=== PATIENT | female | born 1985 | race Caucasian/White ===

== ENCOUNTER 2024-01-02 09:53 | Emergency (ER) | payer MEDICAID, OTHER ==
[~2024-01-02] VITALS: Ht 167.6 cm; Wt 75.0 kg
[2024-01-02 10:07] VITALS: O2SAT 98
[2024-01-02 11:07] LABS: CLARITY URINE CLEAR (CLEAR); COLOR URINE YELLOW (YELLOW); GLUCOSE URINE NEGATIVE (NEGATIVE); KETONES URINE NEGATIVE (NEGATIVE); LEUKOCYTE ESTERASE URINE 1+ (NEGATIVE); NITRITE URINE NEGATIVE (NEGATIVE); OCCULT BLOOD URINE NEGATIVE (NEGATIVE); PH URINE 5.5 (4.5-8.0); PROTEIN URINE NEGATIVE (NEGATIVE); SPECIFIC GRAVITY URINE 1.015 (1.005-1.030); UROBILINOGEN URINE 0.2 E.U./dL (0.2-1.0)
[2024-01-02 11:21] LABS: SQUAMOUS EPITHELIAL CELL URINE 2+ /lpf (RARE/1+)
[2024-01-02 11:22] LABS: BACTERIA URINE 2+
[2024-01-02 11:23] LABS: RBC URINE NONE SEEN /hpf (0-2)
[2024-01-02] MEDS: ONDANSETRON 4MG ODT PO ONE (12:12)
[2024-01-02] MEDS ORDERED: CEFP200T13 MT (13:12)
[2024-01-02 15:00] VITALS: BP 130/62; PULSE 95; RESP 18; TEMP 98.4
== END 2024-01-02 15:27 | disposition home or self-care (01) ==
LOC: ER 09:53
DX: N39.0 Urinary tract infection, site not specified (principal); R30.0 Dysuria; Z87.442 Personal history of urinary calculi
CPT/HCPCS: 99284; 74176; 81003; 81025; 87086; 87186; 87077; Q0162